=== PATIENT | female | born 1970 ===

== ENCOUNTER 2017-07-16 16:02 | Outpatient (CLI) | payer OTHER ==
[2017-07-20] MEDS ORDERED: TYLENOL EXTRA500 MG PO (14:09)
== END 2017-07-16 16:10 | disposition home or self-care (01) ==
LOC: LAB 16:02
DX: D68.8 Other specified coagulation defects (principal)

== ENCOUNTER → 2017-07-20 | Day surgery (SDC) | payer OTHER ==
[~2017-07-20] MED LIST: TYLENOL EXTRA500 MG PO
== END | disposition home or self-care (01) ==
LOC: ADM 07-06 11:00 → CIR.AMB 07:42
DX: N84.0 Polyp of corpus uteri (principal)